=== PATIENT | male | born 1940 | race Caucasian/White ===

== ENCOUNTER 2017-08-22 17:44 | Emergency (ER) | payer MEDICARE, OTHER ==
[2017-08-22] MEDS ORDERED: Meclizine TAB* 12.5 MG PO ONE ×2 (18:15→20:58)
[2017-08-22] MEDS ORDERED: Ondansetron ODT TAB* 4 MG PO ONE (18:15)
[2017-08-22] MEDS ORDERED: NS 0.9% 1000 ML* 1,000 ML IV ONE (18:15)
[2017-08-22] MEDS ORDERED: Ondansetron INJ* 2 MG/ML VIAL IV ONE (18:16)
[2017-08-22] MEDS ORDERED: Ondansetron INJ* 2 MG/ML VIAL ONE (18:18)
[2017-08-22 18:38] LABS: ABS Basophils 0.1 10^3/ul (0-0.2); ABS Eosinophils 0.1 10^3/ul (0-0.6); ABS Lymphocytes 1.8 10^3/ul (1.0-4.8); ABS Monocytes 0.4 10^3/ul (0-0.8); ABS Neutrophils 2.6 10^3/ul (1.5-7.7); ABS Nucleated RBC 0 10^3/ul; Eosinophil % 1.8 % (0-6); Hematocrit 45 % (42-52); Hemoglobin 15.5 g/dl (14.0-18.0); Lymphocyte % 36.4 % (25-47); Mean Corpuscular HGB Conc 34 g/dl (31-36); Mean Corpuscular Hemoglobin 32 pg (27-31); Mean Corpuscular Volume 93 fL (80-94); Mean Platelet Volume 8 um3 (7.4-10.4); Nucleated Red Blood Cells % 0.2; Platelet Count 151 10^3/ul (150-450); Red Blood Count 4.86 10^6/ul (4.0-5.4); Red Cell Distribution Width 14 % (10.5-15); White Blood Count 4.9 10^3/ul (3.5-10.8)
[2017-08-22 18:44] LABS: INR 1.01 (0.77-1.02)
[2017-08-22 18:52] LABS: EGFR Non-African American 54.8 (>60)
--- NOTE | 2017-08-22 19:11 | RAD ---
HISTORY: Cough COMPARISONS: September 02, 2015 VIEWS: 1: frontal portable view of the chest at 6:25 PM FINDINGS: LINES AND TUBES: None. CARDIOMEDIASTINAL SILHOUETTE: The cardiomediastinal silhouette is normal for portable technique. PLEURA: The costophrenic angles are sharp. No pleural abnormalities are noted. LUNG PARENCHYMA: The lungs are clear. ABDOMEN: The upper abdomen is clear. There is no subphrenic gas. BONES AND SOFT TISSUES: No bone or soft tissue abnormalities are noted. IMPRESSION: NO ACTIVE CARDIOPULMONARY DISEASE.
--- NOTE | 2017-08-22 20:30 | RAD ---
HISTORY: Vertigo COMPARISONS: September 03, 2015 TECHNIQUE: Multiple contiguous axial CT scans were obtained of the head without intravenous contrast. FINDINGS: HEMORRHAGE/INFARCT: There is no hemorrhage or acute infarct. MASSES/SHIFT: There is no mass or shift. EXTRA-AXIAL SPACES: There are no extra-axial fluid collections. SULCI AND VENTRICLES: The sulci and ventricles are normal in size and position for the patient's stated age. CEREBRUM: There are no focal parenchymal abnormalities. BRAINSTEM: There are no focal parenchymal abnormalities. CEREBELLUM: There are no focal parenchymal abnormalities. VESSELS: The vessels are grossly normal. PARANASAL SINUSES: The paranasal sinuses are clear. 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 BONES AND SOFT TISSUE: No bone or soft tissue abnormalities are noted. OTHER: None IMPRESSION: NO ACUTE INTRACRANIAL PATHOLOGY.
--- NOTE | 2017-08-22 20:34 | RAD ---
HISTORY: Low back pain with left-sided sciatica COMPARISONS: April 29, 2013 TECHNIQUE: Multiple contiguous axial CT scans were obtained of the lumbar spine without intravenous contrast, with coronal and sagittal multiplanar reformations. FINDINGS: SPINAL CANAL: Evaluation of the central canal is limited on CT technique; however, there is no obvious canalicular mass or epidural hemorrhage. ALIGNMENT: There is trace anterolisthesis of L4 on L5. There is trace retrolisthesis of L5 on S1 and L2 and L3. VERTEBRAL BODIES: The vertebral bodies are preserved in height. There is mild anterolateral marginal osteophyte formation with sclerotic radiographic changes at L5-S1 T11-T12, and L1-L2. JOINTS: There is facet osteoarthritis along the lower lumbar spine MUSCULATURE: Unremarkable INTERVERTEBRAL DISCS: There is diffuse loss of intervertebral disc height throughout the spine. AXIAL IMAGES: T12-L1: There is no osseous neural foraminal narrowing or central canal stenosis. L1-L2: There is a broad-based disc bulge. There is no osseous neural foraminal narrowing or central stenosis. L2-L3: There is no osseous neural foraminal narrowing or central canal stenosis. L3-L4: There is a broad-based disc bulge. There is no significant osseous neural foraminal narrowing or central canal stenosis. L4-L5: There is mild disc bulge. There is no osseous neural foraminal narrowing or central canal stenosis. L5-S1: There is no osseous neural foraminal narrowing or central canal stenosis. 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 There is atherosclerosis of the abdominal aorta. OTHER: None IMPRESSION: 1. DEGENERATIVE DISC DISEASE AND OSTEOARTHRITIS. THERE IS NO SIGNIFICANT OSSEOUS NEURAL FORAMINAL NARROWING OR CENTRAL CANAL STENOSIS. 2. 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
--- NOTE | 2017-08-22 21:38 | ED ---
Montrell Elizalde Sixian, scribed for Silviano Copeland MD on 08/22/17 at 1814 . Complex/Multi-Sys Presentation - HPI Summary HPI Summary: This patient is a 77 year old M presenting to ED with a chief complaint of flu- like symptoms since 5 days ago. He had whooping cough 10 year ago and reports having dark phlegm. The patient rates the pain 8/10 in severity. Symptoms aggravated movement and alleviated by nothing. Patient reports a bad cold, nausea, diaphoresis, chills, and vertigo when he moves his head, while lying flat or bending forward, chronic back pain, and L leg pain. He also reports not being able to sleep. Patient denies ear pain. - History Of Current Complaint Chief Complaint: EDGeneral Time Seen by Provider: 08/22/17 17:55 Hx Obtained From: Patient Onset/Duration: Gradual Onset, Lasting Days, Still Present Timing: Constant, Days Aggravating Factor(s): movement Alleviating Factor(s): nothing Associated Signs And Symptoms: Positive: Other - Patient reports a bad cold, nausea, diaphoresis, chills, and vertigo when he moves his head, while lying flat or bending forward, chronic back pain, and L leg pain. He also reports not being able to sleep. Patient denies ear pain. - Allergies/Home Medications Allergies/Adverse Reactions: Allergies Allergy/AdvReac Type Severity Reaction Status Date / Time iodixanol [From Visipaque] Allergy Intermediate Rash And Verified 08/22/17 18:34 Itching tetracycline Allergy Mild See Comment Verified 08/22/17 18:34 PMH/Surg Hx/FS Hx/Imm Hx Endocrine/Hematology History: Denies: Hx Diabetes, Hx Thyroid Disease Cardiovascular History: Reports: Hx Hypercholesterolemia, Hx Hypertension Denies: Hx Congestive Heart Failure Respiratory History: Reports: Other Respiratory Problems/Disorders - pertusis Denies: Hx Asthma, Hx Chronic Obstructive Pulmonary Disease (COPD) GI History: Denies: Hx Ulcer History: Reports: Other Problems/Disorders - kidney blockage in the past, not a stone per patient Denies: Hx Dialysis, Hx Renal Disease Musculoskeletal History: Reports: Hx Back Problems Sensory History: Reports: Hx Contacts or Glasses Opthamlomology History: Reports: Hx Contacts or Glasses Neurological History: Reports: Hx Transient Ischemic Attacks (TIA), Other Neuro Impairments/Disorders - narcolepsy - Cancer History Cancer Type, Location and Year: Prostate CA - Surgical History Surgery Procedure, Year, and Place: Prostate CA surgery 2005. 70 years ago - Right eye removed. knee surgeries. hernia repair Hx Anesthesia Reactions: No Infectious Disease History: No Infectious Disease History: Denies: Hx Hepatitis, Hx Human Immunodeficiency Virus (HIV), Traveled Outside the [place] in Last 30 Days - Family History Known Family History: Positive: None - reviewed & noncontributory - Social History Alcohol Use: None Hx Substance Use: No Substance Use Type: Reports: None Hx Tobacco Use: No Smoking Status (MU): Former Smoker Review of Systems Positive: Chills, Skin Diaphoresis Negative: Ear Ache Positive: Nausea Positive: Other - chronic back pain, and L leg pain Neurological: Other - vertigo All Other Systems Reviewed And Are Negative: Yes Physical Exam - Summary Physical Exam Summary: General: well-appearing, no pain distress Skin: warm, color reflects adequate perfusion, dry Head: normal Eyes: EOMI, ALIZE ENT: normal Neck: supple, nontender Respiratory: CTA, breath sounds present, Scattered bronchi. Dry cough Cardiovascular: RRR Abdomen: soft, nontender Bowel: present Musculoskeletal: normal, strength/ROM intact Neurological: normal, sensory/motor intact, A&O x3 Psychological: affect/mood appropriate Triage Information Reviewed: Yes Vital Signs On Initial Exam: Initial Vitals Temp Pulse Resp BP Pulse Ox 97.3 F 80 16 167/102 99 08/22/17 17:49 08/22/17 17:49 08/22/17 17:49 08/22/17 17:49 08/22/17 17:49 Vital Signs Reviewed: Yes Diagnostics - Vital Signs Vital Signs Temp Pulse Resp BP Pulse Ox 08/22/17 18:00 75 156/95 96 08/22/17 17:55 79 167/102 95 08/22/17 17:49 97.3 F 80 16 167/102 99 - Laboratory Lab Results: Lab Results 08/22/17 08/22/17 08/22/17 Range/Units 18:25 18:25 18:25 WBC 4.9 (3.5-10.8) 10^3/ul RBC 4.86 (4.0-5.4) 10^6/ul Hgb 15.5 (14.0-18.0) g/dl Hct 45 (42-52) % MCV 93 (80-94) fL MCH 32 H (27-31) pg MCHC 34 (31-36) g/dl RDW 14 (10.5-15) % Plt Count 151 (150-450) 10^3/ul MPV 8 (7.4-10.4) um3 Neut % (Auto) 53.0 (38-83) % Lymph % (Auto) 36.4 (25-47) % Brown % (Auto) 7.4 H (0-7) % Eos % (Auto) 1.8 (0-6) % Baso % (Auto) 1.4 (0-2) % Absolute Neuts (auto) 2.6 (1.5-7.7) 10^3/ul Absolute Lymphs (auto) 1.8 (1.0-4.8) 10^3/ul Absolute Monos (auto) 0.4 (0-0.8) 10^3/ul Absolute Eos (auto) 0.1 (0-0.6) 10^3/ul Absolute Basos (auto) 0.1 (0-0.2) 10^3/ul Absolute Nucleated RBC 0 10^3/ul Nucleated RBC % 0.2 INR (Anticoag Therapy) 1.01 (0.77-1.02) APTT 29.2 (26.0-36.3) seconds Sodium 136 (133-145) mmol/L Potassium 4.1 (3.5-5.0) mmol/L Chloride 102 (101-111) mmol/L Carbon Dioxide 26 (22-32) mmol/L Anion Gap 8 (2-11) mmol/L BUN 17 (6-24) mg/dL Creatinine 1.27 H (0.67-1.17) mg/dL Est GFR ( Amer) 70.5 (>60) Est GFR (Non-Af Amer) 54.8 (>60) BUN/Creatinine Ratio 13.4 (8-20) Glucose 101 H (70-100) mg/dL Calcium 9.8 (8.6-10.3) mg/dL Total Bilirubin 0.80 (0.2-1.0) mg/dL AST 16 (13-39) U/L ALT 20 (7-52) U/L Alkaline Phosphatase 70 (34-104) U/L C-Reactive Protein 4.62 (< 5.00) mg/L Total Protein 7.3 (6.4-8.9) g/dL Albumin 4.4 (3.2-5.2) g/dL Globulin 2.9 (2-4) g/dL Albumin/Globulin Ratio 1.5 (1-3) Result Diagrams: 08/22/17 18:25 08/22/17 18:25 Lab Statement: Any lab studies that have been ordered have been reviewed, and results considered in the medical decision making process. - Radiology CXR Radiology Interpretation Completed By: Radiologist - NO ACTIVE CARDIOPULMONARY DISEASE. ED physician has reviewed this radiology report. Complex Multi-Symp Course/Dx Course Of Treatment: BP noted and advised to follow up with PCP. Medications reviewed. Allergies noted. VERTIGO IMPROVED IN ED WITH MECLIZINE. DISCUSSED RESULTS WITH PATIENT. NO NEUROLOGIC DEFICIT. DISCUSSED RENAL ANEURYSM WITH PATIENT; HE WILL F/U WITH PMD. WILL RETURN IF WORSE. - Diagnoses Provider Diagnoses: Vertigo, Low back pain radiating to left leg Discharge - Discharge Plan Condition: Stable Disposition: HOME Prescriptions: Meclizine HCl [Motion Sickness Relief] 25 mg PO Q6H PRN #15 tablet PRN Reason: Dizziness Patient Education Materials: Vertigo (ED), Low Back Strain (ED), Lumbar Radiculopathy (ED), Lower Back Exercises (ED) Referrals: Sarabjit Sandy MD [Medical Doctor] - Additional Instructions: FOLLOW UP WITH YOUR DOCTOR. TAKE THE MECLIZINE 25MG EVERY 6 HOURS NEEDED FOR VERTIGO. YOUR CT SHOWED A 1 CM RENAL ARTERY ANEURYSM; DISCUSS THIS WITH YOUR PRIMARY CARE DOCTOR. TAKE THE DICLOFENAC DIRECTED; 50MG THREE TIMES DAILY NEEDED WITH FOOD. YOU CAN ALSO TAKE ACETAMINOPHEN DIRECTED NEEDED. RETURN TO THE EMERGENCY DEPARTMENT FOR ANY WORSENING OF YOUR CONDITION; PAIN, WEAKNESS, NUMBNESS, DIFFICULTY CONTROLLING BOWEL OR BLADDER OR QUESTIONS OR CONCERNS. YOUR BLOOD PRESSURE WAS ELEVATED TODAY; FOLLOW UP WITH YOUR PRIMARY CARE DOCTOR WITHIN THE NEXT 1 WEEK. The documentation as recorded by the Montrell sequeira Sixian accurately reflects the service I personally performed and the decisions made by me, Silviano Copeland MD.
[2017-08-22 21:56] VITALS: BP 144/82
== END 2017-08-22 21:55 | disposition home or self-care (01) ==
LOC: ED 17:44
DX: R42 Dizziness and giddiness (principal); M51.36 Other intervertebral disc degeneration, lumbar region; M47.816 Spondylosis without myelopathy or radiculopathy, lumbar region; I72.2 Aneurysm of renal artery; Z87.891 Personal history of nicotine dependence; Z88.3 Allergy status to other anti-infective agents; Z88.8 Allergy status to other drugs, medicaments and biological substances
CPT/HCPCS: 36415; 70450; 71045; 72131; 80053; 85025; 85610; 85730; 86140; 96361; 96374; 99284; A9270-GY; J2405